=== PATIENT | male | born 2000 | race Caucasian/White ===

== ENCOUNTER 2022-09-02 11:26 | Day surgery (SDC) | payer OTHER, SELFPAY ==
[2022-09-02] VITALS (7 sets, daily range): BP systolic 101–130; BP diastolic 62–98; PULSE 76–80; RESP 16–18; TEMP 36.4–36.6; O2SAT 96–99; BMI 21.9
[2022-09-02] MEDS: Lactated Ringers 1,000 ML 15 ML IV (12:00)
--- NOTE | 2022-09-02 12:30 | EGD_PTH ---
PATIENT: DARREN BERG LOC: EN U#:[id number] AGE/SX: 22/M ROOM: RE09/02/[address]: Dr. Sergio Almeida DO : 2000 BED: DIS: 09/02/2022 SPEC #: [id number] RECD: 09/02/22 14:44 STATUS: GIORGI REKristopher #: [id number] JEANETH: 09/02/22 12:[address]: Sergio Almeida DEPT: SURGICAL PATHOLOGY RECD BY: Randy Simpson ENTERED: 09/03/22 11:26 SP TYPE: EGD BIOPSY WILLIE DR: Terri Vee, DEVELOPMENT CONSULTANT-C Tissues: Esophagus, NOS Procedures: Special Stain Group II Surgery Specimen Level IV Alcian Blue/PAS (control) HEADER OPERATION: [place] [place] biopsy PRE-OP DIAGNOSIS: Acid reflux TISSUE SUBMITTED: Distal esophagus MICROSCOPIC DIAGNOSIS Distal esophagus, biopsy: Fragments of gastroesophageal mucosa with chronic inflammation. Intestinal metaplasia (goblet cell metaplasia) not identified. See comment. MASTER:sarah 09/04/2022 COMMENT Alcian blue/PAS stain with matched control is used in the evaluation of the specimen. MICROSCOPIC DESCRIPTION Slides are reviewed. GROSS DESCRIPTION Received in fixative is one container labeled with the patient's name and designated distal esophagus. The specimen consists of multiple irregular fragments of light weaver soft tissue that in aggregate measure 1.2 x 0.5 x 0.1 cm. The specimen is totally submitted in one cassette. / MASTER:sarah 09/03/2022 TC:3 CPT: 61111, 81635
--- NOTE | 2022-09-02 13:01 | HP.PCM_ITS ---
History and Physical Date of Admission: 09/02/22 22 M who presents to the office today for 2 yrs of heartburn and dysphagia. Food passes slowly in esophagus, especially if he eats quickly, getting worse over time, hasn't had to cough it up, no ED visits for this. If he lies down, on left side especially, he gets acid reflux. Worse with red sauces. Taking esomeprazole 20 mg daily, it is effective, no adverse effects. Started on omeprazole 20 mg, but had hand rash and lingering cold on it. No abd pain. Bowels are fine, no constipation or diarrhea, no melena or hematochezia. When he vomits the emesis always exits via his nose and never his mouth. He decreased dairy consumption, he is avoiding milk especially which would cause urgent BM. His mother and maternal grandfather have hiatal hernia, GERD, hx Schatzki ring He has seasonal allergies. He had exercise induced asthma as a teenager. ROS Const Constitutional: No fatigue ENT ENT: No difficulty swallowing Gastro GI: No abdominal pain, belching, bloating, change in bowel habits, change in stool character, coffee ground emesis, constipation, cramping, diarrhea, heartburn, difficulty swallowing, feeling full early, excessive flatus, incontinent of stools, Vomiting blood/hematemesis, Blood in stool, loose stools, Black,tarry stools, nausea/dyspepsia, pain with swallowing, vomiting or other Musc Musculoskeletal: No joint pain Skin Skin: No yellowing of the eye or itchy eyes Psych Psychiatric: No anxiety and No depression Endo Endocrine: No fatigue Aller/Imm Allergy/Immunologic: No itchy eyes Clayton/Lymp Hematologic/Lymphatic: No easy bleeding or easy bruising Exam Const General: cooperative, healthy appearing and comfortable Nutritional Appearance: average body habitus Orientation: alert, awake and oriented x3 Eyes Sclera: sclerae normal Neck Neck: normal visual inspection Resp Effort & Inspection: normal respiratory effort GI Inspection: normal to inspection Quality Reporting Tobacco Screening ([facility]) Smoking Status: Never smoker Assessment and Plan Assessment and Plan (1) Acid reflux: ?Status:?Chronic ?Plan: EGD to eval for esophagitis, Schatzki ring, Brewer's, EOE Continue esomeprazole 20 mg daily f/u 2 wks after egd to discuss results I have examined the patient and the H&P has been reviewed. There are no clinical changes since date of exam.
--- NOTE | 2022-09-02 13:31 | OP.EGD_ITS ---
Patient Name: Ted Woo Procedure Date: 09/02/2022 1:05 PM Date of : 2000 Age: 22 Procedure: Upper GI endoscopy Indications: Dysphagia, Heartburn Providers: Sergio Almeida DO Referring MD: Sergio Almeida DO Medicines: Monitored Anesthesia Care Patient Profile: This is a 22 year old male. Refer to note in patient chart for documentation of history and physical. Patient has symptoms of chronic dysphagia. Complications: No immediate complications. Procedure: Pre-Anesthesia Assessment: - Prior to the procedure, a History and Physical was performed, and patient medications and allergies were reviewed. The patient is competent. The risks and benefits of the procedure and the sedation options and risks were discussed with the patient. All questions were answered and informed consent was obtained. Patient identification and proposed procedure were verified by the physician in the pre-procedure area. Mental Status Examination: alert and oriented. Respiratory Examination: clear to auscultation. CV Examination: normal. Prophylactic Antibiotics: The patient does not require prophylactic antibiotics. Prior Anticoagulants: The patient has taken no previous anticoagulant or antiplatelet agents. ASA Grade Assessment: II - A patient with mild systemic disease. After reviewing the risks and benefits, the patient was deemed in satisfactory condition to undergo the procedure. The anesthesia plan was to use monitored anesthesia care (MAC). Immediately prior to administration of medications, the patient was re-assessed for adequacy to receive sedatives. The heart rate, respiratory rate, oxygen saturations, blood pressure, adequacy of pulmonary ventilation, and response to care were monitored throughout the procedure. The physical status of the patient was re-assessed after the procedure. After obtaining informed consent, the endoscope was passed under direct vision. Throughout the procedure, the patient's blood pressure, pulse, and oxygen saturations were monitored continuously. The gastroscope was introduced through the mouth, and advanced to the second part of duodenum. The upper GI endoscopy was accomplished without difficulty. The patient tolerated the procedure well. Scope In: 1:15:57 PM Scope Out: 1:18:35 PM Total Procedure Duration Time 0 hours 2 minutes 38 seconds Findings: The Z-line was irregular and was found 40 cm from the incisors. Biopsies were taken with a cold forceps for histology. Verification of patient identification for the specimen was done. Estimated blood loss was minimal. A medium-sized hiatal hernia was present. No other significant abnormalities were identified in a careful examination of the stomach. The second portion of the duodenum was normal. Impression: - Z-line irregular, 40 cm from the incisors. Biopsied. - Medium-sized hiatal hernia. - Normal second portion of the duodenum. Recommendation: - Discharge patient to home. - Resume previous diet. - Continue present medications. - Await pathology results. - Repeat upper endoscopy in 1 year for surveillance based on pathology results. - Return to GI office. Procedure Code(s): --- Professional --- 24897, Esophagogastroduodenoscopy, flexible, transoral; with biopsy, single or multiple CPT copyright 2017 [employer]. All rights reserved. The codes documented in this report are preliminary and upon marketing specialist review may be revised to meet current compliance requirements. Sergio Almeida DO 09/02/2022 1:31:26 PM This report has been signed electronically. Number of Addenda: 0 Note Initiated On: 09/02/2022 1:05 PM
--- NOTE | 2022-09-02 13:32 | OP.CCLET_ITS ---
09/02/2022 Rena Coreas Re : Upper GI endoscopy procedure for Ted Woo Dear Nanda This procedure was performed on Friday, September 02, 2022. My impressions and recommendations are as follows: Impressions : - Z-line irregular, 40 cm from the incisors. Biopsied. - Medium-sized hiatal hernia. - Normal second portion of the duodenum. Recommendations : - Discharge patient to home. - Resume previous diet. - Continue present medications. - Await pathology results. - Repeat upper endoscopy in 1 year for surveillance based on pathology results. - Return to GI office. My findings are described in the full procedure note, which is enclosed. If I can be of further assistance, please feel free to contact me at . Sincerely, Sergio Almeida, 09/02/2022 1:31:26 PM This report has been signed electronically.
== END 2022-09-02 14:00 | disposition home or self-care (01) ==
LOC: EN 11:30 → AC 11:31
PROVIDERS: PCP Nurse Practitioner Family; Referring Provider Nurse Practitioner Family; Visit Provider Internal Medicine Gastroenterology
PROC: 0DJ08ZZ Inspection of Upper Intestinal Tract, Via Natural or Artificial Opening Endoscopic (ICD-10-PCS; CPT 43235; principal; 2022-09-02 12:25)
DX: K44.9 Diaphragmatic hernia without obstruction or gangrene (principal); K21.9 Gastro-esophageal reflux disease without esophagitis; R13.10 Dysphagia, unspecified
CPT/HCPCS: 43239; 88305; 88313; J7120; J2405

== ENCOUNTER → 2022-10-06 | Outpatient (CLI) | payer OTHER, SELFPAY ==
[2022-10-10 01:06] LABS: Alternaria alternata 2.57 kU/L (Class III); Aspergillus fumigatus 0.19 kU/L (Class 0/I); Beef <0.10 kU/L (Class 0); Bermuda Grass 6.06 kU/L (Class IV); Cat Hair/Dander, Standard <0.10 kU/L (Class 0); Cedar, Mountain <0.10 kU/L (Class 0); Chocolate <0.10 kU/L (Class 0); Cladosporium herbarum 0.11 kU/L (Class 0/I); Clam 0.13 kU/L (Class 0/I); Cockroach, American <0.10 kU/L (Class 0); Codfish <0.10 kU/L (Class 0); Corn <0.10 kU/L (Class 0); D farinae Mite <0.10 kU/L (Class 0); D pteronyssinus <0.10 kU/L (Class 0); Dog Epithelia 0.16 kU/L (Class 0/I); Egg, White <0.10 kU/L (Class 0); Egg, Whole <0.10 kU/L (Class 0); Elm, American White 0.54 kU/L (Class I); Hazelnut Tree <0.10 kU/L (Class 0); Hickory, White 4.85 kU/L (Class IV); Maple/Box Elder 1.92 kU/L (Class III); Milk (Cow) <0.10 kU/L (Class 0); Mucor racemosus <0.10 kU/L (Class 0); Mugwort <0.10 kU/L (Class 0); Mulberry, White <0.10 kU/L (Class 0); Oak, White 0.14 kU/L (Class 0/I); Peanut <0.10 kU/L (Class 0); Penicillium chrysogen <0.10 kU/L (Class 0); Pigweed, Rough <0.10 kU/L (Class 0); Plantain, English 0.17 kU/L (Class 0/I); Pork <0.10 kU/L (Class 0); Ragweed, Short/Common 1.17 kU/L (Class II); SESAME SEED <0.10 kU/L (Class 0); Sheep Sorrel(Dock) <0.10 kU/L (Class 0); Shrimp <0.10 kU/L (Class 0); Soybean <0.10 kU/L (Class 0); Stemphylium herbarum 0.28 kU/L (Class 0/I); Sweet Gum 0.32 kU/L (Class I); Sycamore, American <0.10 kU/L (Class 0); Walnut, (Food) <0.10 kU/L (Class 0); Wheat 0.12 kU/L (Class 0/I)
== END | disposition home or self-care (01) ==
LOC: LAB 15:24
PROVIDERS: PCP Nurse Practitioner Family; Referring Provider Internal Medicine Gastroenterology; Visit Provider Internal Medicine Gastroenterology
DX: K21.9 Gastro-esophageal reflux disease without esophagitis (principal)
CPT/HCPCS: 36415; 86003; 86005

== ENCOUNTER → 2024-03-04 | Outpatient (CLI) | payer OTHER, SELFPAY | END | disposition home or self-care (01) | PROVIDERS: PCP Nurse Practitioner Family; Referring Provider Internal Medicine Cardiovascular Disease; Visit Provider Internal Medicine Cardiovascular Disease | DX: R00.1 Bradycardia, unspecified (principal); R55 Syncope and collapse | CPT/HCPCS: 93225; 93226 ==